=== PATIENT | male | born 1980 | race Caucasian/White ===

== ENCOUNTER 2024-09-26 03:00 | Emergency (ER) | payer SELFPAY ==
[~2024-09-26] VITALS: Ht 165.1 cm; Wt 80.0 kg
[2024-09-26 03:12] VITALS: TEMP 36.6; O2SAT 100
[2024-09-26] MEDS: LIDOCAINE HCL 1% 20ML VIAL INFIL ONE (04:00)
[2024-09-26] MEDS: TETANUS, DIPHTHERIA, PERTUSSIS VAC/PF 0.5ML (>10YR OLD) IM ONE (04:56)
[2024-09-26] MEDS ORDERED: NAPR-1176 MT (05:01)
[2024-09-26 05:09] VITALS: BP 120/83; PULSE 89; RESP 16; O2SAT 100
[2024-09-26] MEDS ORDERED: ACETAMINOPHEN 500MG TABLET PO ONE (05:15)
== END 2024-09-26 05:10 | disposition home or self-care (01) ==
LOC: ER 03:00
DX: S01.111A Laceration without foreign body of right eyelid and periocular area, initial encounter (principal); S09.90XA Unspecified injury of head, initial encounter; Z79.1 Long term (current) use of non-steroidal anti-inflammatories (NSAID); Y04.0XXA Assault by unarmed brawl or fight, initial encounter; Y93.89 Activity, other specified; Y92.89 Other specified places as the place of occurrence of the external cause; Y99.8 Other external cause status
CPT/HCPCS: 99283; 90715; 12013; 90471; J2003